=== PATIENT | male | born 1960 | race Caucasian/White ===

== ENCOUNTER 2017-06-04 10:26 | Outpatient (CLI) | payer BC | END 2017-06-04 10:27 | disposition home or self-care (01) | LOC: BICRAD 10:26 | DX: M79.89 Other specified soft tissue disorders (principal); M25.571 Pain in right ankle and joints of right foot ==

== ENCOUNTER 2018-04-23 13:04 | Outpatient (CLI) | payer OTHER ==
--- NOTE | 2018-04-23 15:05 | ULT ---
BILATERAL RENAL ULTRASOUND: Date: 04/23/18 HISTORY: 57-year-old male with kidney stones. FINDINGS: The right kidney measures 11.9 cm in length and the left kidney measures 10.1 cm in length. No shadow ing calculi, renal mass, or hydronephrosis seen on either side. Urinary bladder is normal. Bilateral ureteral jets are seen. IMPRESSION: Unremarkable exam. POS: [facility]
== END 2018-04-23 13:05 | disposition home or self-care (01) ==
LOC: BICULT 13:04
PROVIDERS: ATTEND Urology
DX: Z12.5 Encounter for screening for malignant neoplasm of prostate (principal); N20.0 Calculus of kidney; R35.1 Nocturia; N40.0 Benign prostatic hyperplasia without lower urinary tract symptoms; Z87.442 Personal history of urinary calculi
CPT/HCPCS: 76770

== ENCOUNTER 2018-12-17 09:21 | Day surgery (SDC) | payer OTHER ==
--- NOTE | 2018-12-17 10:11 | RAD ---
XR Abdomen 1 View/KUB HISTORY: Renal calculus COMPARISON: None. FINDINGS: The bowel gas pattern appears nonobstructed. No definitive renal calculi are seen. A slight ly oblong-shaped 5 mm calcification is seen in the right side of the pelvis, this is potentially a distal ureteral calculus. Postoperative changes of the spine are noted. IMPRESSION: Potential distal right ureteral calculus.
[2018-12-17 10:18] LABS: Bilirubin Negative (Negative); Blood, Urine Negative (Negative); Clarity CLEAR (Clear); Glucose, Urine (Dipstick) Negative (Negative); Leukocyte Negative (Negative); Nitrite Negative (Negative); Protein, Urine (Dipstick) Negative (Neg-Trace); Specific Gravity, Urine 1.025 (1.002-1.036)
[2018-12-17 10:25] LABS: #Eosinphils 0.1 thou/uL (0.0-0.7); #Lymphocytes 1.3 thou/uL (1.20-3.40); #Monocytes 1.7 thou/uL (0.11-0.59); #Neutrophils 9.2 thou/uL (1.40-6.50); %Basophils 0.2 % (0.0-1.0); %Eosinophils 0.4 % (0.0-10.0); %Lymphocytes 10.6 % (21.0-51.0); %Neutrophils 74.8 % (42.0-75.0); Hemoglobin 16.1 g/dL (14.0-18.0); Mean Corpuscular HGB CONC 33.1 g/dL (32.0-36.0); Mean Corpuscular Hemoglobin 29.7 pg (27.0-31.0); Mean Corpuscular Volume 89.6 fL (78.0-98.0); Mean Platelet Volume 7.9 fL (7.4-10.4); Platelet Count 172 thou/uL (130-400); RBC Distribution Width 12.6 % (11.5-14.5); Red Blood Cell (RBC) Count 5.41 mill/uL (4.70-6.10); White Blood Cell (WBC) Count 12.3 thou/uL (4.8-10.8)
[2018-12-17 10:41] LABS: PTT 29.1 SEC (22.9-36.1); Prothrombin Time 13.7 SEC (12.0-14.7)
[2018-12-17 10:43] LABS: Bacteria/HPF None Seen HPF (None Seen); Hyaline Casts/LPF NONE SEEN LPF (0-3 Hyaline); RBC/HPF None Seen HPF (0-3); Squamous Epithelial 0-3 HPF (0-3); WBC/HPF None Seen HPF (0-3)
[2018-12-17 10:45] LABS: Anion Gap 13 mmol/L (10-20); BUN (Urea Nitrogen) 18 mg/dL (8.4-25.7); Calc. Creatinine Clearance 0 mL/min (70-130); Calcium 9.2 mg/dL (7.8-10.44); Carbon Dioxide 28 mmol/L (22-29); Chloride 99 mmol/L (98-107); Estimated GFR-MDRD 33; Glucose 118 mg/dL (70-105); Potassium 3.7 mmol/L (3.5-5.1); Sodium 136 mmol/L (136-145)
[2018-12-17] MEDS ORDERED: PROPOFOL 200 MG/20 ML VIAL ONE (11:38)
[2018-12-17] MEDS ORDERED: Lidocaine 1% PF 5 ML VIAL ONE (11:38)
[2018-12-17] MEDS ORDERED: Glycopyrrolate 0.2 MG/ML 5 ML SYRINGE ONE (11:38)
[2018-12-17] MEDS ORDERED: Ondansetron PF 4 MG/2 ML Vial ONE (11:38)
[2018-12-17] MEDS ORDERED: Dexamethasone 20 MG/5 ML VIAL ONE (11:38)
[2018-12-17] MEDS ORDERED: Rocuronium Bromide 10 MG/ML (10ML VIAL) ONE (11:38)
[2018-12-17] MEDS ORDERED: Sodium Chloride 0.9% 100 ML ONE (12:01)
[2018-12-17] MEDS ORDERED: cefTRIAXone\\ROCEPHIN 2 GM VIAL ONE (12:01)
[2018-12-17] MEDS ORDERED: Iothalamate Meglumine 60% 50 ML VIAL FS ONE (12:16)
[2018-12-17] MEDS ORDERED: Midazolam HCl 2 mg/2 ml Vial ONE ×2 (12:22→12:30)
[2018-12-17] MEDS ORDERED: Scopolamine 1.5 mg/72 hour Patch ONE (12:22)
[2018-12-17] MEDS ORDERED: Fentanyl 100 MCG/2 ML VIAL ONE ×2 (12:30→13:53)
--- NOTE | 2018-12-17 13:33 | RAD ---
XR IVP Retrograde HISTORY: Kidney stones COMPARISON: None. FINDINGS: 6 images are presented for interpretation, these show filling of a nondilated left collecti ng system. Final images show what appears to be beginning stent placement on the right. IMPRESSION: Retrograde pyelogram as described above
[2018-12-17] MEDS ORDERED: Phenazopyridine HCl 97.5 MG TABLET ONE (13:59)
[2018-12-17] MEDS ORDERED: Oxybutynin 5 MG TAB ONE (13:59)
--- NOTE | 2018-12-17 15:33 | OP ---
DATE OF PROCEDURE: 12/17/2018 PREOPERATIVE DIAGNOSES: 1. A 58-year-old male with history of recurrent kidney stone, presents with right flank pain due to right 3-4 mm ureterovesical junction stone. 2. Left nonobstructing 1-2 mm L3 ureteral calculi, nonobstructing. POSTOPERATIVE DIAGNOSES: 1. A 58-year-old male with history of recurrent kidney stone, presents with right flank pain due to right 3-4 mm ureterovesical junction stone. 2. Left nonobstructing 1-2 mm L3 ureteral calculi, nonobstructing. PROCEDURES PERFORMED: 1. Cystoscopy. 2. Bilateral retrograde pyelogram. 3. Dilation of right intramural ureter. 4. Rigid ureteroscopy. 5. Laser lithotripsy. 6. Basket extraction of right ureteral calculi. 7. Right 6 x 30 double-J ureteral stent placement. ANESTHESIA: General. COMPLICATIONS: None apparent. DISPOSITION: To recovery room in stable condition. SPECIMENS: Right ureteral calculi for chemical analysis. INDICATIONS FOR PROCEDURE AND HISTORY: Mr. Wylie is a 58-year-old male with history of recurrent kidney stone, presented to my office to establish care a few months ago. He was scheduled for staging ultrasound for his history of kidney stones. However, he presented to the emergency room last night due to acute onset of right flank pain with nausea and vomiting. As he has contralateral nonobstructing left renal calculi as well with persistent nausea and vomiting, advised regarding stone treatment. Risks and complications and indications reviewed including, but not limited to: Bleeding, pain, infection, injury to adjacent organs, urosepsis, ureteral stricture formation, injury to adjacent organs such as ureter, bladder, kidney. All questions were answered to his satisfaction. He desired to proceed. DESCRIPTION OF PROCEDURE: After an informed consent was signed, the patient was taken to the operating room and placed in a dorsal lithotomy position with the genital area prepped and draped in the usual surgical sterile fashion. A 21- Amharic cystoscope was utilized for cystoscopy, which demonstrated normal anterior posterior urethra. Bilateral lateral lobes of the prostate demonstrated coapting lobes with no significant outlet obstruction. His PML was approximately 2.5 cm. The bladder was entered, which demonstrated no evidence of papillary lesions of concern. No tumors. No stones were visualized. The UOs are normal orthotopic position. I performed a left retrograde pyelogram 1st, which demonstrated no filling defect. Prompt excretion of contrast with no evidence of hydronephrosis is noted. We paid attention to his right side with the evidence of ureteral stone on KUB. Retrograde pyelogram did demonstrate mild dilatation of the distal ureter. A 0.035 Sensor wire was passed into the right upper pole without difficulty. Using a [employer] 4-cm 12-Amharic balloon dilator, we dilated the intramural ureter uneventfully. Subsequently, I was able to pass a rigid ureteroscope without any trauma. Stone was directly visualized just proximal to the intramural ureter. It appeared to be bilobed. Laser lithotripsy using 200 micron laser fiber was performed. We were able to then subsequently retrieve the stone intact atraumatically. No other stones were seen. The bladder was completely emptied. A 6 x 30 double-J ureteral stent was passed over the wire, then wire was subsequently removed with good coil in the kidney and bladder. Bladder was emptied and the stent string was taped to the patient's pubic symphysis. The patient is scheduled to go out of area. I am okay with this as long as he adheres to strict postop instructions. They may remove the string next Sunday, with instructions provided to present to the nearest emergency room if persistent fever, flank pain, myalgia of concern. He was provided Flomax, 0.4 mg one p.o. daily, and Omnicef for 7 days. They will return to clinic 01/08 when they are back in town in [place] with KUB, BMP, UA, C and S 2-3 days prior to their appointment in order to return to clinic with the stent removed as a specimen for me to review. Job ID: [id number] [facility]
[2018-12-17] MEDS ORDERED: HYDROcodone/Acetaminophen 5/325 mg Tablet ONE (16:36)
== END 2018-12-17 16:50 | disposition home or self-care (01) ==
LOC: SDC 09:21
PROVIDERS: ATTEND Urology
PROC: 0TF38ZZ Fragmentation in Right Kidney Pelvis, Via Natural or Artificial Opening Endoscopic (ICD-10-PCS; principal; 2018-12-17)
PROC: 0T768DZ Dilation of Right Ureter with Intraluminal Device, Via Natural or Artificial Opening Endoscopic (ICD-10-PCS; principal; 2018-12-17)
DX: N20.2 Calculus of kidney with calculus of ureter (principal); N48.6 Induration penis plastica; N40.1 Benign prostatic hyperplasia with lower urinary tract symptoms; R35.1 Nocturia; Z79.899 Other long term (current) drug therapy; Z88.5 Allergy status to narcotic agent
CPT/HCPCS: 36415; 74018; 74420; 80048; 81001; 82365; 85025; 85610; 85730; 87086; 88300; 93005; 93010; C1758; C1769; J0696; J1100; J2001; J2250; J2405; J2704; J3010; J3490

== ENCOUNTER 2019-01-06 13:24 | Outpatient (CLI) | payer OTHER ==
--- NOTE | 2019-01-06 13:39 | RAD ---
XR Abdomen 1 View/KUB 2 views provided CLINICAL INDICATION: Urolithiasis FINDINGS: Lung basesare not visualized. Punctate calcific density of the right pelvis is stable. No acute osseous pathology. IMPRESSION: Stable punctate density of the right pelvis.
== END 2019-01-06 13:25 | disposition home or self-care (01) ==
LOC: BICRAD 13:24
PROVIDERS: ATTEND Urology
DX: N20.1 Calculus of ureter (principal); N28.89 Other specified disorders of kidney and ureter
CPT/HCPCS: 36415; 74018; 80048; 81001

== ENCOUNTER 2019-04-07 07:20 | Outpatient (CLI) | payer OTHER ==
--- NOTE | 2019-04-07 10:20 | ULT ---
RENAL SONOGRAM: HISTORY: Renal calculi. COMPARISON: 04/23/2018. FINDINGS: The kidneys demonstrate a normal sonographic appearance bilaterally without evidence of a renal calcu maryjane, renal mass, or hydronephrosis. No perinephric fluid collection is identified. A few echogenic foci are seen within the right kidney which do not demonstrate posterior shadowing are likely related to prominent vessels. The right kidney measures 11.2 cm x 5 cm with the left kidney measuring 11.5 cm x 5.1 cm. The urinary bladder is incompletely distended but otherwise grossly within normal limits. IMPRESSION: Normal-appearing bilateral kidneys without hydronephrosis. POS: [facility]
--- NOTE | 2019-04-07 10:24 | RAD ---
ONE VIEW ABDOMEN: COMPARISON: 01/06/2019. HISTORY: Renal calculi. FINDINGS: Nonspecific bowel gas pattern. No suspicious density in the abdomen or pelvis. Scattered fecal mate rial in a nondistended, nondilated colon. Lumbar fusion hardware is noted with stable bilateral white spedicular screws at L4 and L5. Disk prosthesis is identified. IMPRESSION: Nonspecific bowel gas pattern. POS: [facility]
== END 2019-04-07 07:21 | disposition home or self-care (01) ==
LOC: BICULT 07:20
PROVIDERS: ATTEND Urology
DX: N20.1 Calculus of ureter (principal)
CPT/HCPCS: 36415; 74018; 76770; 81001; 87086; G0103

== ENCOUNTER 2019-05-28 15:57 | Outpatient (CLI) | payer OTHER ==
--- NOTE | 2019-05-28 16:23 | RAD ---
Chest 2 views HISTORY: Dyspnea. Cough. FINDINGS: Cardiac silhouette and pulmonary vasculature are unremarkable. Mediastinum is midline. No c onfluent airspace consolidation, pneumothorax, or pleural fluid are apparent. IMPRESSION: No active cardiopulmonary abnormalities are demonstrated.
== END 2019-05-28 15:58 | disposition home or self-care (01) ==
LOC: BICRAD 15:57
PROVIDERS: ATTEND Family Medicine
DX: J45.901 Unspecified asthma with (acute) exacerbation (principal)
CPT/HCPCS: 71046

== ENCOUNTER 2019-11-06 14:36 | Outpatient (CLI) | payer OTHER ==
--- NOTE | 2019-11-06 15:34 | CT ---
CT ANGIOGRAM THORAX WITH CONTRAST: (CTA pulmonary angiogram) DATE: 11/06/2019 HISTORY: 59-year-old male with ICD-10: "I 26.9 pulmonary embolism without acute cor pulmonale" History of COVID-19 positive diagnosis. TECHNIQUE: IV injection of iodinated contrast. Scan acquisition timing attempted to coincide with iodinated contrast bolus reaching maximal density in pulmonary arteries. 3-D MIP reconstructions. FINDINGS: Pulmonary thromboembolism: None. Lungs: Clear. Pneumothorax: None. Pleural effusion: None. Thoracic aorta: No aneurysm or dissection. Mediastinum: No lymphadenopathy or other mass. [place]: No lymphadenopathy or other mass. IMPRESSION: Normal.
== END 2019-11-06 14:37 | disposition home or self-care (01) ==
LOC: SCSCT 14:36
PROVIDERS: ATTEND Family Medicine
DX: I26.99 Other pulmonary embolism without acute cor pulmonale (principal)
CPT/HCPCS: 71275

== ENCOUNTER 2019-11-24 12:27 | Outpatient (CLI) | payer OTHER ==
[~2019-11-24 12:27] MED LIST: Magnevist 469MG/ML 20 ML VIAL ONE
--- NOTE | 2019-11-24 14:50 | MRI ---
MRI BRAIN WITH AND WITHOUT IV CONTRAST: HISTORY: A 59-year-old male with concern for CSF leak. FINDINGS: No restricted diffusion is seen. No evidence of infarct, hemorrhage, mass, midline shift, or abnorma l extraaxial fluid collections is noted. The ventricular size is normal and the basilar cisterns pat ent. No abnormal postcontrast enhancement is seen. No significant signal abnormalities are identifi ed on the highly sensitive FLAIR images. No blood products are noted on the gradient echo sequences. The optic chiasm, midbrain and christian havs a normal appearance. No abnormal meningeal enhancement is s een. Extensive mucosal disease is seen in the paranasal sinuses, most prominent in the ethmoid sinuses. IMPRESSION: 1. No significant intracranial abnormalities are identified. 2. Paranasal sinus disease. POS: [facility]
== END 2019-11-24 12:28 | disposition home or self-care (01) ==
LOC: MRI 12:27
PROVIDERS: ATTEND Family Medicine
DX: G96.0 Cerebrospinal fluid leak (principal)
CPT/HCPCS: 70553; A9579

== ENCOUNTER 2020-06-16 10:17 | Outpatient (CLI) | payer OTHER ==
--- NOTE | 2020-06-16 11:47 | MRI ---
Exam: Lumbar spine MRI with and without contrast HISTORY: Skin paresthesia. Numbness along both inner thighs, right greater than left. Symptoms began after kaz COVID. Patient has previous lumbar fusion. COMPARISON: None FINDINGS: There are bilateral transpedicular screws at L4 and L5 with associated metallic susceptibly artifact. There are type II Modic changes at the L4-L5 disc space. There is a L4-L5 disc prosthesis. There is an acute Schmorl's node along the inferior endplate of L3 and superior endplate of L4. Appropriate signal intensity of the visualized paraspinal muscles and solid organs. Conus medullaris terminates at the T12-L1 disc space. Postcontrast images do not demonstrate any abnormal enhancement of the vertebral bodies. There is no abnormal enhancement within the thecal sac including the cauda equina and conus medullaris. T12-L1: Adequate disc hydration. No significant central canal stenosis or significant neural foramina l narrowing. L1-L2: Minimal disc desiccation without significant loss of disc space height. There is a small midli ne annular fissure without significant associated posterior disc abnormality. Overall there is mild broad-based disc bulge with mild central canal stenosis. Patent bilateral neural foramina. L2-L3: Adequate disc hydration. No significant loss of disc space height. Broad-based disc bulge, lig amentum flavum thickening and facet hypertrophy result in mild central canal stenosis. Encroachment upon bilateral subarticular zones with contact upon bilateral traversing L3 nerve roots. Right neural foramen is mildly narrowed. Mild to moderate left neural foraminal narrowing. L3-L4: Adequate disc hydration. No significant loss of disc space height. Broad-based disc bulge abut s the thecal sac. There is a left hemilaminotomy defect. There is no significant central canal stenosis. Mild to moderate bilateral neural foraminal narrowing. L4-L5: Disc prosthesis. Left hemilaminotomy defect. No significant central canal stenosis. Patent leif ateral neural foramina. L5-S1: Minimal disc desiccation without significant loss of disc space height. Broad-based disc bulge abuts the thecal sac. There is mild ligamentum flavum thickening. Moderate facet hypertrophy. Fluid in bilateral facet joints. Narrowing of bilateral subarticular zones with partial obscuration o f bilateral traversing S1 nerve roots due to disc material and to lesser extent posterior element hypertrophy. Moderate bilateral neural foraminal narrowing. IMPRESSION: 1. Lumbar fusion at L4-L5. 2. Annular fissure at L1. 3. Varying degrees of central canal stenosis and neural foraminal narrowing as detailed above. There is narrowing of bilateral subarticular zones at L5-S1 with partial obscuration of bilateral traversing S1 nerve roots. Transcribed Date/Time: 06/16/2020 12:33 PM
== END 2020-06-16 10:18 | disposition home or self-care (01) ==
LOC: BICMRI 10:17
PROVIDERS: ATTEND Psychiatry & Neurology Neurology
DX: R20.2 Paresthesia of skin (principal); M48.061 Spinal stenosis, lumbar region without neurogenic claudication; M48.07 Spinal stenosis, lumbosacral region; M51.86 Other intervertebral disc disorders, lumbar region; Z98.1 Arthrodesis status
CPT/HCPCS: 72158

== ENCOUNTER 2021-02-04 18:38 | Emergency (ER) | payer OTHER | END 2021-02-04 19:06 | disposition left against medical advice (07) | LOC: ERS 18:38 | DX: Z53.21 Procedure and treatment not carried out due to patient leaving prior to being seen by health care provider (principal) ==

== ENCOUNTER 2021-02-07 14:28 | Outpatient (CLI) | payer BC | END 2021-02-07 14:29 | disposition home or self-care (01) | LOC: ULT 14:28 | PROVIDERS: ATTEND Family Medicine | DX: R60.0 Localized edema (principal) ==

== ENCOUNTER 2021-08-05 13:33 | Outpatient (CLI) | payer BC | END 2021-08-05 13:34 | disposition home or self-care (01) | LOC: BICULT 13:33 | PROVIDERS: ATTEND Urology | DX: N50.89 Other specified disorders of the male genital organs (principal); N50.3 Cyst of epididymis; I86.1 Scrotal varices | CPT/HCPCS: 76870; 93976 ==

== ENCOUNTER 2021-10-06 15:18 | Outpatient (CLI) | payer BC | END 2021-10-06 15:19 | disposition home or self-care (01) | LOC: BICULT 15:18 | PROVIDERS: ATTEND Urology | DX: N40.0 Benign prostatic hyperplasia without lower urinary tract symptoms (principal); R35.1 Nocturia; Z87.442 Personal history of urinary calculi | CPT/HCPCS: 76770 ==

== ENCOUNTER 2023-12-18 16:34 | Outpatient (CLI) | payer BC | END 2023-12-18 16:35 | disposition home or self-care (01) | LOC: SCSRAD 16:34 | PROVIDERS: ATTEND Family Medicine | DX: R05.9 Cough, unspecified (principal) | CPT/HCPCS: 71046 ==